=== PATIENT | male | born 1990 | race Caucasian/White ===

== ENCOUNTER 2022-07-12 12:08 | Emergency (ER) | payer SELFPAY ==
[~2022-07-12] VITALS: Ht 185 cm; Wt 154.0 kg
--- NOTE | 2022-07-12 12:39 | ED General ---
General Chief Complaint: COVID19 Suspect/Confirmed Stated Complaint: CONGESTION | SINUS PRESSURE Nursing Triage Note: PT PRESENTS TO ED VIA POV FROM DR OFFICE FOR COMPLAINTS OF CONGESTION, SINUS PRESSURE, CHEST PRESSURE, COUGH, AND CHILLS X 3 DAYS. PT STATES HE WAS TESTED FOR COVID AT THE DR OFFICE BUT DOES NOT KNOW RESULT. Source of Information: Patient Exam Limitations: No Limitations History of Present Illness Date Seen by Provider: Jul 12, 2022 Time Seen by Provider: 12:38 Initial Comments To ER by private vehicle with reports of chest pain cough shortness of breath diaphoresis. He initially presented to [facility] walk-in [facility] where his complaints of chest pain and shortness of breath alarmed him resulting in an EKG and transfer to the emergency room here. History obtained from [facility] staff and the patient himself. He states that for the past 3 to 4 days he has been having fatigue sore throat sinus congestion cough shortness of breath. His chest pain is in the center of his chest and is worsened by deep breathing and coughing. Timing/Duration: 3-4 Days Severity: Moderate Associated Systoms: Cough, Malaise Allergies and Home Medications Allergies Coded Allergies: No Known Drug Allergies (Unverified , 07/12/22) Patient Home Medication List Home Medication List Reviewed: Yes Review of Systems Review of Systems Constitutional: see HPI Past Qqpuger-Wihtuj-Upwmug Hx Patient Social History Tobacco Use?: Yes Tobacco type used: Cigarettes Smoking Status: Current Everyday Smoker Substance use?: No Alcohol Use?: No Pt feels they are or have been: No Physical Exam Vital Signs Vital Signs - First Documented 07/12/22 12:29 Temp 35.3 Pulse 118 Resp 18 B/P (MAP) 158/92 (114) Pulse Ox 97 Capillary Refill : Less Than 3 Seconds Height, Weight, BMI Height: '" Weight: lbs. oz. kg; 44.00 BMI Method: General Appearance: No Apparent Distress, WD/WN, Obese, Other (Alert and oriented very pleasant no distress. Oxygen saturation 94% room air heart rate 109. Blood pressure 158/92.) Eyes: Bilateral Eye Normal Inspection, Bilateral Eye PERRL HEENT: PERRL/EOMI, TMs Normal, Pharyngeal Erythema Neck: Full Range of Motion, Normal Inspection Respiratory: No Accessory Muscle Use, No Respiratory Distress Cardiovascular: Normal Peripheral Pulses, Tachycardia Gastrointestinal: Normal Bowel Sounds, Non Tender, Soft Extremity: Normal Capillary Refill, No Calf Tenderness Neurologic/Psychiatric: Alert, Oriented x3 Skin: Normal Color, Warm/Dry Progress/Results/Core Measures Suspected Sepsis SIRS Temperature: Pulse: 118 Respiratory Rate: 18 Laboratory Tests 07/12/22 13:02: White Blood Count 19.9H Blood Pressure 158 /92 Mean: 114 Laboratory Tests 07/12/22 13:02: Creatinine 1.13, Platelet Count 288, Total Bilirubin 0.4 Results/Orders Lab Results Laboratory Tests Test 07/12/22 12:25 07/12/22 13:02 Range/Units Influenza Type A (RT-PCR) Not Detected Not Detecte Influenza Type B (RT-PCR) Not Detected Not Detecte SARS-CoV-2 RNA (RT-PCR) Not Detected Not Detecte White Blood Count 19.9 H 4.3-11.0 10^3/uL Red Blood Count 5.46 4.30-5.52 10^6/uL Hemoglobin 15.6 13.3-17.7 g/dL Hematocrit 47 40-54 % Mean Corpuscular Volume 86 80-99 fL Mean Corpuscular Hemoglobin 29 25-34 pg Mean Corpuscular Hemoglobin Concent 33 32-36 g/dL Red Cell Distribution Width 13.1 10.0-14.5 % Platelet Count 288 130-400 10^3/uL Mean Platelet Volume 9.9 9.0-12.2 fL Immature Granulocyte % (Auto) 1 % Neutrophils (%) (Auto) 79 H 42-75 % Lymphocytes (%) (Auto) 13 12-44 % Monocytes (%) (Auto) 7 0-12 % Eosinophils (%) (Auto) 1 0-10 % Basophils (%) (Auto) 0 0-10 % Neutrophils # (Auto) 15.7 H 1.8-7.8 10^3/uL Lymphocytes # (Auto) 2.6 1.0-4.0 10^3/uL Monocytes # (Auto) 1.3 H 0.0-1.0 10^3/uL Eosinophils # (Auto) 0.2 0.0-0.3 10^3/uL Basophils # (Auto) 0.1 0.0-0.1 10^3/uL Immature Granulocyte # (Auto) 0.1 0.0-0.1 10^3/uL Neutrophils % (Manual) 78 % Lymphocytes % (Manual) 16 % Monocytes % (Manual) 5 % Eosinophils % (Manual) 1 % Basophils % (Manual) 0 % Band Neutrophils 0 % Percent Immature Platelet Fraction 4.5 0.0-7.6 % Blood Morphology Comment NORMAL Sodium Level 135 135-145 MMOL/L Potassium Level 4.8 3.6-5.0 MMOL/L Chloride Level 106 98-107 MMOL/L Carbon Dioxide Level 18 L 21-32 MMOL/L Anion Gap 11 5-14 MMOL/L Blood Urea Nitrogen 13 7-18 MG/DL Creatinine 1.13 0.60-1.30 MG/DL Estimat Glomerular Filtration Rate 89 BUN/Creatinine Ratio 12 Glucose Level 132 H 70-105 MG/DL Calcium Level 9.7 8.5-10.1 MG/DL Corrected Calcium 9.8 8.5-10.1 MG/DL Total Bilirubin 0.4 0.1-1.0 MG/DL Aspartate Amino Transf (AST/SGOT) 21 5-34 U/L Alanine Aminotransferase (ALT/SGPT) 28 0-55 U/L Alkaline Phosphatase 67 40-136 U/L Troponin I < 0.028 <0.028 NG/ML C-Reactive Protein High Sensitivity 11.50 H 0.00-0.50 MG/DL Total Protein 8.2 6.4-8.2 GM/DL Albumin 3.9 3.2-4.5 GM/DL My Orders Orders - JUAN DAVID OVERTON [employer] Cbc With Automated Diff (07/12/22 12:35) Comprehensive Metabolic Panel (07/12/22 12:35) Ed Iv/Invasive Line Start (07/12/22 12:35) Chest 1 View, Ap/Pa Only (07/12/22 12:35) Troponin I Moffat (07/12/22 12:35) Hs C Reactive Protein (07/12/22 12:35) Covid 19 Inhouse Test (07/12/22 12:35) Influenza A And B By Pcr (07/12/22 12:35) Ekg Tracing (07/12/22 12:35) Ed Iv/Invasive Line Start (07/12/22 12:35) Ketorolac Injection (Toradol Injection) (07/12/22 12:45) Ns Iv 1000 Ml (Sodium Chloride 0.9%) (07/12/22 12:45) Manual Differential (07/12/22 13:02) Ceftriaxone 1 Gm Pre-Mix (Rocephin 1 Gm (07/12/22 13:30) Doxycycline Hyclate Tablet (Vibramycin T (07/12/22 13:30) Ct Angio Chest W (R/O Pe) (07/12/22 13:26) Iohexol Injection (Omnipaque 350 Mg/Ml 1 (07/12/22 13:45) Received Contrast (Hold Metformin- Contr (07/12/22 13:45) Ns (Ivpb) (Sodium Chloride 0.9% Ivpb Bag (07/12/22 13:45) Medications Given in ED Current Medications Medications Dose Ordered Sig/Luis Miguel Route Start Time Stop Time Status Last Admin Dose Admin Ceftriaxone Sodium/Dextrose 50 ml @ 100 mls/hr ONCE ONCE IV 07/12/22 13:30 07/12/22 13:59 DC 07/12/22 14:05 100 MLS/HR Iohexol 75 ml ONCE ONCE IV 07/12/22 13:45 07/12/22 13:47 DC 07/12/22 14:39 97 ML Ketorolac Tromethamine 15 mg ONCE ONCE IVP 07/12/22 12:45 07/12/22 12:46 DC 07/12/22 12:42 15 MG Sodium Chloride 100 ml ONCE ONCE IV 07/12/22 13:45 07/12/22 13:47 DC 07/12/22 14:39 70 ML Vital Signs/I&O 07/12/22 12:29 Temp 35.3 Pulse 118 Resp 18 B/P (MAP) 158/92 (114) Pulse Ox 97 Capillary Refill : Less Than 3 Seconds Blood Pressure Mean: 114 Departure Communication (Admissions) NAME: GARETH RIVERS II [facility] REC#: [id number] PT STATUS: REG ER : 1990 PHYSICIAN: JUAN DAVID OVERTON APRN ADMIT DATE: 07/12/22/ER Draft Date of Exam:07/12/22 CT ANGIO CHEST W (R/O PE) INDICATION: Recent shoulder surgery, complaining of mid chest pain. COMPARISON: No prior studies are available for comparison. Pulmonary arterial opacification is suboptimal but no definite central pulmonary emboli are detected. No filling defects are seen. The thoracic aorta is normal caliber. There is no dissection. There is no pericardial or pleural fluid detected. There is a 5 mm nodule in the superior segment of the right lower lobe, nonspecific. No infiltrates are seen apart from minimal patchy airspace infiltrate or atelectasis in the right lower lobe more inferiorly. Left lung is clear. There is a mildly prominent lymph node in the right hilum which could be reactive. Upper abdomen is unremarkable. IMPRESSION: 1. No evidence of pulmonary embolism or acute aortic disease. 2. Patchy right lower lobe infiltrate or atelectasis and probable right hilar reactive lymphadenopathy. The study is otherwise unremarkable. Dictated on workstation # [id number] Dict: 07/12/22 1446 Trans: 07/12/22 1452 [facility] [id number] Interpreted by: JERZY STARK MD Electronically signed by: EKG shows sinus rhythm at [address] segment changes no ectopy. Heart rate little elevated at 105-110. Complains of chest tightness persistent cough body aches. States this feels very similar to when he had pneumonia last time a couple of years ago. He has a lot of sinus pressure. Sinusitis is within the differential as is pneumonia. CT angio chest shows no PE though it does show a RLL pneumonia. Rocephin +doxy here with rx for doxy 100 bid #14 outpatient. Impression Primary Impression: RLL pneumonia Disposition: HOME, SELF-CARE Condition: Stable Departure-Patient Inst. Decision time for Depature: 15:06 Referrals: NO,LOCAL PHYSICIAN (PCP/Family) Primary Care Physician Patient Instructions: Pneumonia, Adult (DC) Add. Discharge Instructions: Return to ER for any concerns take antibiotics as directed All discharge instructions reviewed with patient and/or family. Voiced understanding. Scripts Doxycycline Hyclate (Doxycycline Hyclate) 100 Mg Tablet 100 MG PO BID, #14 TAB 0 Refills Prov: JUAN DAVID OVERTON APRN 07/12/22 Work/School Note: Work Release Form Date Seen in the Emergency Department: Jul 12, 2022 Return to Work: Jul 14, 2022 JUAN DAVID OVERTON APRN Jul 12, 2022 12:39
[2022-07-12] MEDS ORDERED: KETOROLAC 30 MG/ML VIAL IVP ONE (12:45)
[2022-07-12] MEDS ORDERED: NS IV 1000 ML 1,000 ML IV SCH (12:45)
[2022-07-12 13:10] LABS: BASOPHILS # (AUTO) 0.1 10^3/uL (0.0-0.1); BASOPHILS % (AUTO) 0 % (0-10); EOSINOPHILS # (AUTO) 0.2 10^3/uL (0.0-0.3); EOSINOPHILS % (AUTO) 1 % (0-10); MEAN CORPUSCULAR HEMOGLOBIN 29 pg (25-34); MEAN PLATELET VOLUME 9.9 fL (9.0-12.2); NEUTROPHILS # (AUTO) 15.7 10^3/uL (1.8-7.8)
[2022-07-12 13:12] LABS: HEMATOCRIT 47 % (40-54); HEMOGLOBIN 15.6 g/dL (13.3-17.7); LYMPHOCYTES # (AUTO) 2.6 10^3/uL (1.0-4.0); LYMPHOCYTES % (AUTO) 13 % (12-44); MEAN CORPUSCULAR HGB CONC 33 g/dL (32-36); MEAN CORPUSCULAR VOLUME 86 fL (80-99); MONOCYTES # (AUTO) 1.3 10^3/uL (0.0-1.0); MONOCYTES % (AUTO) 7 % (0-12); NEUTROPHILS % (AUTO) 79 % (42-75); PLATELET COUNT 288 10^3/uL (130-400); WHITE BLOOD COUNT 19.9 10^3/uL (4.3-11.0)
--- NOTE | 2022-07-12 13:19 | Diagnostic Imaging Report ---
CLINICAL INDICATION: Patient with cough and chest pain. Patient has congestion and sinus pressure. Patient has chills x3 days. EXAM: Portable chest x-ray upright view. COMPARISON: None. FINDINGS: Lungs/pleura: There is subtle amorphous airspace opacity involving the medial right lung base which may represent atelectasis versus infiltrate. Otherwise, lungs are clear. There is no pneumothorax. There is no pleural effusion. Mediastinum: Unremarkable. Pulmonary vasculature: Unremarkable. Heart: Unremarkable. Bones/extrathoracic soft tissue: Unremarkable. IMPRESSION: There is subtle airspace opacity involving the medial right lung base which may represent atelectasis versus infiltrate. Dictated by: Dictated on workstation # [id number]
[2022-07-12 13:22] LABS: ALBUMIN 3.9 GM/DL (3.2-4.5); CHLORIDE 106 MMOL/L (98-107); POTASSIUM 4.8 MMOL/L (3.6-5.0); SODIUM 135 MMOL/L (135-145)
[2022-07-12 13:23] LABS: CALCIUM 9.7 MG/DL (8.5-10.1)
[2022-07-12 13:25] LABS: GLUCOSE 132 MG/DL (70-105); TOTAL PROTEIN 8.2 GM/DL (6.4-8.2)
[2022-07-12 13:26] LABS: BAND NEUTROPHILS 0 %; BILIRUBIN,TOTAL 0.4 MG/DL (0.1-1.0); CARBON DIOXIDE 18 MMOL/L (21-32); EOSINOPHILS % (MANUAL) 1 %; LYMPHOCYTES % (MANUAL) 16 %; MONOCYTES % (MANUAL) 5 %; NEUTROPHILS % (MANUAL) 78 %
[2022-07-12 13:27] LABS: BASOPHILS % (MANUAL) 0 %
[2022-07-12 13:28] LABS: ALKALINE PHOSPHATASE 67 U/L (40-136); CREATININE SERUM 1.13 MG/DL (0.60-1.30); GFR ESTIMATED 89; RBC MORPH NORMAL
[2022-07-12 13:29] LABS: BUN/CREATININE RATIO 12
[2022-07-12] MEDS ORDERED: cefTRIAXone 1 GM PRE-MIX 50 ML IV ONE (13:30)
[2022-07-12] MEDS ORDERED: DOXYCYCLINE 100 MG (VIBRAMYCIN) TABLET PO SCH (13:30)
[2022-07-12 13:31] LABS: ALANINE AMINOTRANSFERASE 28 U/L (0-55)
[2022-07-12] MEDS ORDERED: IOHEXOL 350 MG/ML 100 ML (OMNIPAQUE 350) VIAL IV ONE (13:45)
[2022-07-12] MEDS ORDERED: NS 100 ML (IVPB) BAG IV ONE (13:45)
[2022-07-12] MEDS ORDERED: HOLD METFORMIN - RECEIVED CONTRAST 20 ML VIAL IV SCH (13:45)
--- NOTE | 2022-07-12 14:52 | Diagnostic Imaging Report ---
INDICATION: Recent shoulder surgery, complaining of mid chest pain. COMPARISON: No prior studies are available for comparison. Pulmonary arterial opacification is suboptimal but no definite central pulmonary emboli are detected. No filling defects are seen. The thoracic aorta is normal caliber. There is no dissection. There is no pericardial or pleural fluid detected. There is a 5 mm nodule in the superior segment of the right lower lobe, nonspecific. No infiltrates are seen apart from minimal patchy airspace infiltrate or atelectasis in the right lower lobe more inferiorly. Left lung is clear. There is a mildly prominent lymph node in the right hilum which could be reactive. Upper abdomen is unremarkable. IMPRESSION: 1. No evidence of pulmonary embolism or acute aortic disease. 2. Patchy right lower lobe infiltrate or atelectasis and probable right hilar reactive lymphadenopathy. The study is otherwise unremarkable. Dictated by: Dictated on workstation # [id number]
[2022-07-12] MEDS ORDERED: DOXY100T2 PO (15:07)
[2022-07-12 15:27] VITALS: BP 142/88
== END 2022-07-12 15:27 | disposition home or self-care (01) ==
LOC: ER 12:11
DX: J18.9 Pneumonia, unspecified organism (principal); E66.9 Obesity, unspecified; F17.210 Nicotine dependence, cigarettes, uncomplicated; Z68.41 Body mass index [BMI] 40.0-44.9, adult; Z20.822 Contact with and (suspected) exposure to COVID-19; Z28.310 Unvaccinated for COVID-19
CPT/HCPCS: 36415; 71045; 71275; 80053; 84484; 85007; 85027; 86141; 87636; 93005